=== PATIENT | female | born 1960 | race Caucasian/White ===

== ENCOUNTER → 2019-03-03 | Outpatient (CLI) | payer BC ==
[2019-03-03 07:42] VITALS: BP 124/75; PULSE 87; RESP 18; TEMP 97.7; BMI 25.9
--- NOTE | 2019-03-03 09:10 | P.GSHP ---
History of Present Illness H&P Date: 03/03/19 Chief Complaint: Dimpling right breast Abiola is a 58-year-old white female who presents with a complaint of dimpling in her right breast for approximately 6 months. She does not complain of any pain in her breast. She does state that her nipple was inverted as well. She does not feel any palpable lumps or masses in her breast. A mammogram was performed which revealed multiple fine granular calcifications in the upper outer aspect of the right breast. Additionally there was a spiculated mass associated with the calcifications. The patient's last mammogram was in 2003. The patient did have a needle aspiration/biopsy of the lesion in 2003 which was benign. This was in the right breast. Family History: maternal aunt: of breast cancer at 55 maternal grandfather: metastatic cancer ? primary maternal aunt: colon cancer Hormonal History: menarche: 15 G0 menopause: 51 BCP: 5 years hormones: none Surgical history: 1.colonoscopy Medical History: none Social History: smoke: none alcohol: none drugs: none - Constitutional Constitutional: Denies chills, Denies fever - EENT Comment: wears glasses Eyes: denies decreased vision, denies pain Ears: deny: decreased hearing, tinnitus Ears, nose, mouth and throat: Denies headache, Denies sore throat - Breasts Breasts: bilateral: as per HPI - Cardiovascular Cardiovascular: Denies chest pain, Denies shortness of breath - Respiratory Respiratory: Denies cough, Denies 7 - Gastrointestinal Gastrointestinal: Denies abdominal pain, Denies diarrhea, Denies nausea, Denies vomiting - Genitourinary (Female) Genitourinary: Denies dysuria, Denies hematuria - Menstruation Menstruation: Reports postmenopausal - Musculoskeletal Comment: arthritis - Integumentary Integumentary: Denies pruritus, Denies rash - Neurological Neurological: Denies numbness, Denies weakness - Psychiatric Psychiatric: Denies anxiety, Denies depression - Endocrine Comment: diabetes, Januvia, metformin, Farxiga Endocrine: Denies fatigue, Denies weight change - Hematologic/Lymphatic Comment: none - Allergic/Immunologic Allergic/Immunologic: Reports seasonal allergies Past Medical History Past Medical History: Diabetes Mellitus, Hyperlipidemia History of Any Multi-Drug Resistant Organisms: None Reported Past Surgical History: No Surgical Hx Reported Past Anesthesia/Blood Transfusion Reactions: No Reported Reaction Past Psychological History: No Psychological Hx Reported Smoking Status: Never smoker Past Alcohol Use History: None Reported Past Drug Use History: None Reported - Past Family History Father Additional Family Medical History / Comment(s): "Heart Problems" Mother Family Medical History: No Reported History Medications and Allergies Home Medications Medication Instructions Recorded Confirmed Type Dapagliflozin Propanediol [Farxiga] 10 mg PO QAM 03/03/19 03/03/19 History metFORMIN HCL [Glucophage] 500 mg PO QAM 03/03/19 03/03/19 History sitaGLIPtin PHOSPHATE [Januvia] 100 mg PO QAM 03/03/19 03/03/19 History Allergies Allergy/AdvReac Type Severity Reaction Status Date / Time No Known Allergies Allergy Unverified 03/03/19 07:32 Surgical - Exam Vital Signs Temp Pulse Resp BP Pulse Ox 97.7 F 87 18 124/75 95 03/03/19 07:35 03/03/19 07:35 03/03/19 07:35 03/03/19 07:35 03/03/19 07:35 BMI 26 - General well developed, well nourished, no distress - Eyes normal ocular movement - ENT no hearing loss, no congestion - Neck no masses, trachea midline - Respiratory normal expansion, normal respiratory effort, clear to auscultation - Cardiovascular Rhythm: regular Heart Sounds: normal: S1, S2 - Abdomen Abdomen: soft, non tender, no guarding, no rigid, no rebound - Integumentary normal turgor - Neurologic no disoriented, no combative - Musculoskeletal normal gait, normal posture - Psychiatric oriented to time, oriented to person, oriented to place, speech is normal, memory intact breast exam: right: breast: Multi-positional exam nipple inversion, right breast is approximately a quarter smaller than the left breast, there is fullness in the upper outer quadrant region approximately 13 x 11 cm in size Right axilla: No adenopathy of concern Left breast: Multi-positional exam fibrocystic changes, no dominant masses or nodules of concern Left axilla: No adenopathy of concern Results Bilateral Mammogram reviewed Assessment and Plan Assessment: Impression: 1. right breast nipple inversion 2. right breast mass, highly suggestive of malignancy 3. Abnormal mammogram right breast 4. Family history of breast cancer 5. Family history of cancer 6. Fibrocystic breast disease 7. Dense left breast Plan: 1. Bilateral breast MRI 2. Ultrasound core biopsy right breast 3. Follow-up after ultrasound core biopsy The patient's case was discussed with Dr. Singletary, bilateral breast ultrasound was recommended. Additionally the patient is being scheduled for an ultrasound core biopsy of the right breast. DR. Singletary met and discussed the patient's radiographs with the patient as well. Cc: Dr. Romero
--- NOTE | 2019-03-04 12:24 | USB ---
Reason for exam: clinical finding. History: Patient is nulliparous. Family history of breast cancer. Benign cyst aspiration of the right breast, March 27, 2004. Took hormonal contraceptives for 11 years. Physical Findings: Breast exam performed by Dr. Paul. US Breast Limited BILAT Right complete breast ultrasound includes all four quadrants, the retroareolar region and axilla. Finding demonstrates a 4.0 x 3.2 x 5.1cm solid lesion at 12 o'clock for which a biopsy is recommended, a 1.8 x 1.5 x 1.2cm solid lesion at 2 o'clock, recommendation on radiology/pathology, suspicious, a 2.8 x 2.0 x 2.3cm solid lesion at 8 o'clock, biopsy recommended, a 6.0 x 2.7 x 4.0cm lesion at nipple and a 2.3 x 1.4 x 3.8cm solid lesion at 9 o'clock, recommendation on radiology/pathology, suspicious. Left limited breast ultrasound including focal area of concern, retroareolar and axilla demonstrates a 0.7 x 0.5 x 0.9cm mixed lesion at 1 o'clock, complicated cysts, a 0.5 x 0.4 x 0.5cm mixed lesion at 1 o'clock, complicated cysts, a 2.3 x 0.7 x 3.6cm suspicious lesion at 3 o'clock, biopsy recommended and a 0.6 x 0.2cm lipoma at 6 o'clock. These results were verbally communicated with the patient and result sheet given to the patient on 03/03/19. ASSESSMENT: Suspicious, BI-RAD 4 RECOMMENDATION: Ultrasound core biopsy of both breasts. Called Dr. Paul's office with mammographic findings. Biopsy scheduled for 03/24/19 at 12:20. PRELIMINARY REPORT CALLED AND FAXED TO DR. PAUL ON 03/03/19.
== END | disposition home or self-care (01) ==
LOC: WWCWWP 07:10
PROVIDERS: ATTEND Surgery
DX: R92.8 Other abnormal and inconclusive findings on diagnostic imaging of breast (principal)

== ENCOUNTER → 2019-03-24 | Day surgery (SDC) | payer BC ==
[2019-03-24 11:58] VITALS: RESP 16; BMI 26.8
--- NOTE | 2019-03-24 14:38 | USB ---
EXAMINATION TYPE: US biopsy breast add'l VAD RT, US biopsy breast VAD RT, US discontinued breast bx LT DATE OF EXAM: 03/24/2019 CLINICAL HISTORY: R92.8 abnl mammogram. TECHNIQUE: Ultrasound guided core biopsy of right breast. COMPARISON: Bilateral breast ultrasound dated 03/03/2018 and outside mammogram dated 02/08/2019 FINDINGS: The procedure of ultrasound guided core biopsy was explained to the patient. Benefits, alternatives, and risks were discussed. An informed consent was then obtained. Site A (12:00): The patient was placed in supine positioning for imaging and for the procedure. The overlying skin was prepped and draped in usual sterile fashion. 10 cc of 1% lidocaine was used as anesthetic into the skin and an additional 10 cc of 1% lidocaine was utilized within the subcutaneous tissue up to the 5.1 cm solid highly suspicious mass at the 12:00 position. Under ultrasound guidance, a 12-gauge vacuum assisted biopsy gun device was used to obtain 4 core samples. Following this, a coil-shaped biopsy marker was left in mass. Site B (8:00): The patient was placed in supine positioning for imaging and for the procedure. The overlying skin was prepped and draped in usual sterile fashion. 10 cc of 1% lidocaine was used as anesthetic into the skin and subcutaneous tissue up to a 2.8 cm solid highly suspicious mass at the 8:00 position. Under ultrasound guidance, a 12-gauge vacuum assisted biopsy gun device was used to obtain 5 core samples. Following this, a wing shaped biopsy marker was left in mass. Postprocedure mammogram demonstrates appropriate biopsy marker placement of both biopsy markers. Biopsy marker was placed on the sonographic finding on the left breast prior to postprocedural 3-D mammogram on the left. The BB marker does correspond to the mammographic abnormality and ultrasound-guided left breast biopsy will be performed at a later date as the maximum amount of lidocaine was utilized. The patient tolerated the procedure well without any immediate complication. The patient was kept in the radiology department for short stay after the procedure and then discharged home in stable condition. IMPRESSION: 1. Successful, uncomplicated ultrasound guided core biopsy of 2 highly suspicious masses at the 12:00 and 8:00 position measuring 5.1 cm and 2.8 cm respectively, full pathology results to follow. There remain 2 other suspicious lesions within the right breast that should be evaluated if mastectomy is not performed and highly suspicious right breast calcifications. 2. The left breast biopsy was rescheduled as a maximum dose of lidocaine was utilized for the above biopsies. Pathology Results: Malignant A. RIGHT BREAST, 12:00 LESION, NEEDLE CORE BIOPSIES: Infiltrating lobular carcinoma, classic type. Appropriately controlled immunohistochemical studies for CAM5.2 and ER are positive in tumor cells; , E-Cadherin documents lobular differentiation of tumor cells; smooth muscle myosin heavy chain and calponin document invasion. B. LEFT BREAST, 8:00 LESION, NEEDLE CORE BIOPSIES: Infiltrating lobular carcinoma, classic type. Breast biomarker studies are pending and will be resulted as an addendum. Appropriately controlled immunohistochemical studies for CAM5.2 and ER are positive in tumor cells; , E-Cadherin documents lobular differentiation of tumor cells; smooth muscle myosin heavy chain and calponin document invasion. Recommendation Surgical consult of the right breast. Definitive surgical/medical management. Left biopsy remains recommended and is pending. MTDD
[2019-03-24 15:58] VITALS: BP 123/76; PULSE 72; TEMP 98
--- NOTE | 2019-03-25 08:27 | MM ---
Reason for exam: additional evaluation requested from prior study. Last mammogram was performed 15 years and 1 month ago. History: Patient is nulliparous. Family history of breast cancer. US discontinued breast bx LT of the left breast, March 24, 2019. Benign cyst aspiration of the right breast, March 27, 2004. Took hormonal contraceptives for 11 years. MG Diagnostic Rebecca BI Wo CAD Bilateral CC view(s) were taken. LM view(s) were taken of the right breast. MLO view(s) were taken of the left breast. Prior study comparison: February 20, 2004, bilateral screening mammogram. ASSESSMENT: Post procedure mammogram for marker placement RECOMMENDATION: Ultrasound of both breasts in 6 months. PENDING PATHOLOGY RESULTS.
== END ==
LOC: RADUSWWP 11:20
PROVIDERS: ATTEND Surgery
DX: C50.911 Malignant neoplasm of unspecified site of right female breast (principal); N64.89 Other specified disorders of breast; Z17.0 Estrogen receptor positive status [ER+]; Z80.3 Family history of malignant neoplasm of breast
CPT/HCPCS: 88305; 88342; 88341; 77066; 19083; 19084; 76641; A4648; J2001

== ENCOUNTER → 2019-04-01 | Outpatient (CLI) | payer BC ==
[2019-04-01 08:25] VITALS: BP 145/78; PULSE 83; RESP 18; TEMP 98.1; BMI 26.8
--- NOTE | 2019-04-01 09:38 | P.PN ---
Subjective Progress Note Date: 04/01/19 Principal diagnosis: right breast cancer Stage III Abiola is a 58-year-old white female who presents with a complaint of dimpling in her right breast for approximately 6 months. She does not complain of any pain in her breast. She does state that her nipple was inverted as well. She does not feel any palpable lumps or masses in her breast. A mammogram was performed which revealed multiple fine granular calcifications in the upper outer aspect of the right breast. Additionally there was a spiculated mass associated with the calcifications. The patient's last mammogram was in 2003. The patient did have a needle aspiration/biopsy of the lesion in 2003 which was benign. This was in the right breast. The patient had an ultrasound core biopsy of two sites in the right breast on 03-24-19 which were positive for infiltrating lobular carcinoma. [id number] (ER/AK, HER 2 pending) Family History: maternal aunt: of breast cancer at 55 maternal grandfather: metastatic cancer ? primary maternal aunt: colon cancer Hormonal History: menarche: 15 G0 menopause: 51 BCP: 5 years hormones: none Surgical history: 1.colonoscopy Medical History: none Social History: smoke: none alcohol: none drugs: none - Constitutional Constitutional: Denies chills, Denies fever - EENT Comment: wears glasses Eyes: denies decreased vision, denies pain Ears: deny: decreased hearing, tinnitus Ears, nose, mouth and throat: Denies headache, Denies sore throat - Breasts Breasts: bilateral: as per HPI - Cardiovascular Cardiovascular: Denies chest pain, Denies shortness of breath - Respiratory Respiratory: Denies cough, Denies 7 - Gastrointestinal Gastrointestinal: Denies abdominal pain, Denies diarrhea, Denies nausea, Denies vomiting - Genitourinary (Female) Genitourinary: Denies dysuria, Denies hematuria - Menstruation Menstruation: Reports postmenopausal - Musculoskeletal Comment: arthritis - Integumentary Integumentary: Denies pruritus, Denies rash - Neurological Neurological: Denies numbness, Denies weakness - Psychiatric Psychiatric: Denies anxiety, Denies depression - Endocrine Comment: diabetes, Januvia, metformin, Farxiga Endocrine: Denies fatigue, Denies weight change - Hematologic/Lymphatic Comment: none - Allergic/Immunologic Allergic/Immunologic: Reports seasonal allergies Past Medical History Past Medical History: Diabetes Mellitus, Hyperlipidemia History of Any Multi-Drug Resistant Organisms: None Reported Past Surgical History: No Surgical Hx Reported Past Anesthesia/Blood Transfusion Reactions: No Reported Reaction Past Psychological History: No Psychological Hx Reported Smoking Status: Never smoker Past Alcohol Use History: None Reported Past Drug Use History: None Reported - Past Family History Father Additional Family Medical History / Comment(s): "Heart Problems" Objective - Vital Signs Vital signs: Vital Signs Temp 98.1 F 04/01/19 08:21 Pulse 83 04/01/19 08:21 Resp 18 04/01/19 08:21 BP 145/78 04/01/19 08:21 Pulse Ox 100 04/01/19 08:21 Intake & Output 03/31/19 04/01/19 04/01/19 18:59 06:59 18:59 Weight 73.028 kg - Exam BMI 26.8 - Constitutional General appearance: Present: average body habitus - EENT Eyes: Present: EOMI ENT: Present: hearing grossly normal - Neck Neck: Present: normal ROM - Respiratory Respiratory: bilateral: CTA - Cardiovascular Rhythm: regular Heart sounds: normal: S1, S2 - Gastrointestinal General gastrointestinal: Present: soft - Integumentary Integumentary Comment(s): echymosis right breast related to prior biopsy - Musculoskeletal Musculoskeletal: Present: gait normal - Psychiatric Psychiatric: Present: A&O x's 3, appropriate affect, intact judgment & insight - Additional findings Additional findings: Right breast: Ecchymosis related to recent core biopsy No evidence of infection Fullness approximately 12-13 cm in size right breast consistent with infiltrating lobular carcinoma Conversion right breast right Axilla: No adenopathy of concern Assessment and Plan Assessment: Impression: Stage III right breast cancer Plan: 1. PET/CT 2. Appointment with radiation oncology 2. Appointment medical oncology 4. Ultrasound-guided core biopsy of the left breast 5. Presentation at tumor board and 6. Follow-up after all information is available The ER/AK and HER-2/rufina status of the right breast tumor and I had available. Based on the TNM in great information we have this is at least a stage III breast cancer. The patient is a very we have had a long discussion regarding treatment options. The need for medical and radiation oncology as well as timing of surgical intervention. The patient will be scheduled for metastatic workup and an appointment with medical and radiation oncology scheduled. Surgical intervention of the breast as well as the axilla I discussed with the patient. Additionally it was discussed as to if this were metastatic then surgical intervention will be for local control only and not for cure. At this time the patient and her are going to follow through with consultation with medical and radiation oncology. We are waiting for tumor markers, as well as results from biopsy of the contralateral breast. Cc: Dr. Romero time spent approximately 50 minutes
[2019-04-01 10:22] LABS: Basophils # (A) 0.1 k/uL (0-0.2); Basophils % (A) 1 %; Eosinophils # (A) 0.2 k/uL (0-0.7); Eosinophils % (A) 2 %; HCT 48.9 % (34.0-46.0); HGB 15.7 gm/dL (11.4-16.0); Lymphocytes # (A) 1.8 k/uL (1.0-4.8); Lymphocytes % (A) 25 %; MCH 29.9 pg (25.0-35.0); MCHC 32.1 g/dL (31.0-37.0); MCV 93.3 fL (80.0-100.0); Mean Platelet Volume 7.4; Monocytes # (A) 0.3 k/uL (0-1.0); Monocytes % (A) 5 %; Neutrophils # (A) 4.7 k/uL (1.3-7.7); Neutrophils % (A) 65 %; Platelet Count 302 k/uL (150-450); RBC 5.25 m/uL (3.80-5.40); WBC 7.2 k/uL (3.8-10.6)
[2019-04-01 16:06] LABS: ALT 26 U/L (8-44); AST 19 U/L (13-35); Albumin/Globulin Ratio 2.13 (1.60-3.17); Alkaline Phosphatase 126 U/L (41-126); Bilirubin, Conjugated <0.20 mg/dL (0.20-0.40); Globulin 2.3 g/dL (1.6-3.3); Total Bilirubin 0.5 mg/dL (0.3-1.2); Total Protein 7.2 g/dL (6.2-8.2)
== END | disposition home or self-care (01) ==
LOC: WWCWWP 08:08
PROVIDERS: ATTEND Surgery
DX: C50.911 Malignant neoplasm of unspecified site of right female breast (principal)
CPT/HCPCS: 80076; 85025

== ENCOUNTER → 2019-04-04 | Day surgery (SDC) | payer BC ==
[2019-04-04 14:05] VITALS: RESP 16; BMI 26.8
[2019-04-04 15:36] VITALS: BP 124/66; PULSE 85; TEMP 98.4
--- NOTE | 2019-04-05 04:54 | USB ---
EXAMINATION TYPE: US biopsy breast VAD LT, MG diagnostic mammo LT wo CAD DATE OF EXAM: 04/04/2019 CLINICAL HISTORY: 58-year-old female with recent 2 site positive biopsy proven breast cancer on the r ight. Ultrasound-guided biopsy left breast for suspicious area. R92.8 Abnormal Mammogram. TECHNIQUE: Ultrasound guided core biopsy of the left breast, 3:00. COMPARISON: 03/24/2019 and 03/03/2019 FINDINGS: The procedure of ultrasound guided core biopsy was explained to the patient. Benefits, alt ernatives, and risks were discussed. An informed consent was then obtained. The patient was placed in supine positioning for imaging and for the procedure. The overlying skin w as prepped and draped in usual sterile fashion. Lidocaine was used as anesthetic into the skin and s ubcutaneous tissue up to area of concern in the 3:00 left breast. Under ultrasound guidance, a 13-gauge vacuum assisted Mammotome Elite biopsy gun device was used to o btain 10 core samples. Following this, a ribbon clip was left at the site of extensive sampling. The patient tolerated the procedure well without any immediate complication. The patient was kept in the radiology department for short stay after the procedure and then discharged home in stable condi tion. Post procedure mammogram shows ribbon clip at the expected location of initially questioned asymmetri c density on the CC view. However, no significant appreciable density seems to correspond to this reg ion on the true lateral view. Biopsy site is equivocal for prominent area of shadowing breast tissue versus neoplasm. IMPRESSION: Successful, uncomplicated ultrasound guided core biopsy of area of concern in the 3:00 left breast. P atient with 2 site positive biopsy proven breast cancer recently on the right. Current left breast fi ndings equivocal between a prominent area of shadowing breast tissue versus additional site of neopla sm, full pathology results to follow.
== END ==
LOC: RADUSWWP 13:00
PROVIDERS: ATTEND Surgery
DX: N60.12 Diffuse cystic mastopathy of left breast (principal); R92.1 Mammographic calcification found on diagnostic imaging of breast; R92.8 Other abnormal and inconclusive findings on diagnostic imaging of breast; C50.911 Malignant neoplasm of unspecified site of right female breast
CPT/HCPCS: 88305; 77065; 19083; A4648; J2001

== ENCOUNTER → 2019-04-16 | Outpatient (CLI) | payer BC ==
--- NOTE | 2019-04-18 11:11 | PE ---
EXAMINATION TYPE: PET CT fusion skull to thigh DATE OF EXAM: 04/16/2019 COMPARISON: NONE HISTORY: Right-sided breast cancer newly diagnosed on biopsy March 24, 2019 TECHNIQUE: Following the intravenous administration of 13.7 mCi of F-18 FDG, whole body images are p erformed from the skull base to the midthigh. Images are reviewed on the computer in the coronal, ax ial, and sagittal planes. Reconstructed rotating images are created on independent workstation and r eviewed on the computer. A noncontrast CT is performed in conjunction with the PET scan. SCAN: Initial Scan FINDINGS: SKULL BASE AND NECK: No areas of suspicious hypermetabolic uptake. CHEST, MEDIASTINUM, AND HILAR REGION: Biopsy clip right breast identified axial images 74 and more in feriorly image 83 identified with mild uptake corresponding to heterogeneous soft tissue at superior clip level extending inferiorly and laterally. Max SUV is 2.06. No definitive areas of hypermetabolic uptake in either axilla or left breast. No areas of abnormal hy permetabolic uptake in the thorax. ABDOMEN AND PELVIS: No areas of abnormal hypermetabolic uptake. OSSEOUS STRUCTURES: No areas of abnormal hypermetabolic uptake. OTHER CT: Focal coronary artery calcification proximal LAD axial image 77 is noted which is marker fo r underlying coronary artery disease. There is simple appearing thin-walled 4.8 cm cyst in the hepatic dome axial image 88. Subcentimeter l ow dense lesion left hepatic lobe axial image 104 is presumed benign also. There is 3 mm nonobstructing calculus right kidney axial image 129. There is partially exophytic 3.8 cm right renal mass containing fat and soft tissue density consistent with angiomyolipoma maximum is 129. Some scattered diverticula throughout the colon. Scattered pelvic phleboliths. Some facet arthropathy lower lumbar spine. IMPRESSION: No suspicious adenopathy, left-sided breast hypermetabolic uptake/cancer, or metastatic d isease identified.
== END | disposition home or self-care (01) ==
LOC: RADPETMAIN 07:10
PROVIDERS: ATTEND Surgery
DX: C50.811 Malignant neoplasm of overlapping sites of right female breast (principal); E11.9 Type 2 diabetes mellitus without complications; Z79.84 Long term (current) use of oral hypoglycemic drugs
CPT/HCPCS: 78815; A9552